=== PATIENT | female | born 1990 | race Caucasian/White ===

== ENCOUNTER 2022-06-13 13:17 | Emergency (ER) | payer OTHER, SELFPAY ==
[2022-06-13 13:32] VITALS: BP 127/92; PULSE 102; RESP 16; TEMP 36.4; O2SAT 97
[2022-06-13 15:22] VITALS: BP 124/75; PULSE 95; RESP 18; TEMP 36.3; O2SAT 97
--- NOTE | 2022-06-13 15:38 | ED.UPPEXIN ---
HPI - Extremity Injury (Upper) General Chief Complaint: Extremity Injury, Upper Stated Complaint: tingling in left hand Time Seen by Provider: 06/13/22 14:47 History of Present Illness HPI narrative: 31-year-old female presents the emergency room for evaluation of numbness and tingling to her third fourth and fifth fingers of her left hand. Patient states symptoms of been present for about a week. Patient states that she is predominantly left-handed. Denies any known injury or trauma. 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 States is unable to fully extend her fifth digit. Related Data Home Medications Medication Instructions Recorded Confirmed albuterol sulfate 90 mcg/actuation inhalation 06/13/22 aerosol inhaler allopurinol 100 mg tablet mg 06/13/22 blood sugar diagnostic (Formerly [facility] 06/13/22 06/13/22 Verio test strips) budesonide-formoterol HFA 80 inhalation 06/13/22 mcg-4.5 mcg/actuation aerosol inhaler (Symbicort) fluticasone propionate 115 inhalation 06/13/22 mcg-salmeterol 21 mcg/actuation HFA inhaler (Advair HFA) ibuprofen 800 mg tablet mg 06/13/22 lancets 33 gauge (Formerly [facility] Delica 06/13/22 06/13/22 Plus Lancet) metformin 750 mg tablet,extended mg PO 06/13/22 release 24 hr pantoprazole 40 mg tablet,delayed mg PO 06/13/22 release pen needle, diabetic 31 gauge x 06/13/22 06/13/22/16 (TRUEplus Pen Needle) Allergies Allergy/AdvReac Type Severity Reaction Status Date / Time latex Allergy Hives Verified 06/13/22 15:27 Review of Systems Review of Systems: CONSTITUTIONAL: Denies fever, chills, or sweats. EYES: Denies visual changes, redness, or discharge. ENT: Denies rhinorrhea, congestion, sore throat, or otalgia. CARDIOVASCULAR: Denies chest pain, palpitations, or edema. RESPIRATORY: Denies cough or dyspnea. GASTROINTESTINAL: Denies abdominal pain, nausea, vomiting, or diarrhea. GENITOURINARY: Denies dysuria or hematuria. SKIN: Denies rash or itching. MUSCULOSKELETAL: Denies back pain, joint pain, or myalgia. NEUROLOGIC: Reports numbness and tingling to left hand PSYCHIATRIC: Denies anxiety or depression. Exam Narrative: GENERAL: Well-appearing, well-nourished, no physical limitations, and in no acute distress. HEAD: Normocephalic, atraumatic. EYES: Conjunctivae normal, PERRLA and EOMI. ENT: External nose normal, Nares clear, no rhinorrhea or epistaxis. Mucous membranes moist. Oropharynx without tonsillar hypertrophy exudate or other lesions. External ears normal, bilateral TMs normal bilaterally NECK: Supple. No meningeal signs. No adenopathy or masses. No carotid bruits or JVD CHEST: Clear to auscultation. No respiratory distress. No wheezes rales or rhonchi. No tenderness. HEART: Regular rate and rhythm. No murmur heard. Normal peripheral pulses. ABDOMEN: Soft, nontender, nondistended, normal active bowel sounds. : Normal external male/female exam. BACK: No CVA tenderness; No cervical/thoracic/lumbar tenderness, step-offs, bony abnormality; FROM EXTREMITIES: Left hand: Medial side of the third digit, fourth digit, and fifth digit. Full range of motion of the third and fourth digit, fifth digit unable to actively completely extend. Neurovascular is intact distally. No obvious signs of injury. SKIN: Warm, dry, no rash. No noted wounds NEURO: No focal deficits. Alert and oriented x3. MAEW. CN's II-XI intact bilaterally, normal gait PSYCH: Cooperative. Normal mood and affect. Course Vital Signs Vital signs: Vital Signs Temperature 36.4 C L 06/13/22 13:32 Pulse Rate 102 H 06/13/22 13:32 Respiratory Rate 16 06/13/22 13:32 Blood Pressure 127/92 H 06/13/22 13:32 Pulse Oximetry 97 06/13/22 13:32 Oxygen Delivery Room Air 06/13/22 13:32 Temperature 36.3 C L 06/13/22 15:22 Pulse Rate 95 06/13/22 15:22 Respiratory Rate 18 06/13/22 15:22 Blood Pressure 124/75 06/13/22 15:22 Pulse Oximetry 97 06/13/22 15:22 Oxygen
[2022-06-13 16:15] VITALS: BP 150/89; PULSE 98; RESP 16; TEMP 36.5; O2SAT 99
== END 2022-06-13 16:15 | disposition home or self-care (01) ==
LOC: ANHED 16:25
PROVIDERS: Emergency Provider Nurse Practitioner Family; PCP Family Medicine
DX: G56.22 Lesion of ulnar nerve, left upper limb (principal); Z79.84 Long term (current) use of oral hypoglycemic drugs
CPT/HCPCS: 96372; 99283; J1100

== ENCOUNTER 2022-07-20 07:47 | Outpatient (CLI) | payer OTHER, SELFPAY ==
[2022-07-20 08:23] LABS: Appearance Urine Slightly Cloudy (Clear); Bilirubin Urine Negative (Negative); Blood Urine Negative (Negative); Color Urine Yellow (Yellow); Glucose Urine UA Negative (Negative); Ketones Urine Negative (Negative); Leukocyte Esterase Ur Negative LEU/UL (NEGATIVE); Nitrate Urine Negative (Negative); Protein Urine 1+ mg/dL (Negative); Specific Grav Ur 1.025 (1.001-1.035); Urobilinogen Urine 0.2 mg/dL (<2.0); pH Urine 5.5 (5.0-9.0)
[2022-07-20 08:31] LABS: Mucus Urine Rare /lpf; Squamous Epithelial Cell Urine Many /hpf (Few); WBC Urine 0-3 /hpf (0-3)
[2022-07-20 08:33] LABS: Add Urine Microscopic? YES
[2022-07-20 08:36] LABS: Alanine Aminotransferase 28 U/L (6-35); Albumin Level 4.1 g/dL (3.5-5.1); Alkaline Phosphatase 99 U/L (38-126); Anion Gap 13 mmol/L (8-16); Aspartate Amino Transferase 48 U/L (14-36); Bilirubin,Total 0.3 mg/dL (0.2-1.3); Blood Urea Nitrogen 11 mg/dL (7-17); Calcium 9.1 mg/dL (8.4-10.2); Carbon Dioxide 22 mmol/L (22-30); Chloride 101 mmol/L (98-107); Cholesterol 169 mg/dL (0-200); Estimated Glomerular Filt Rate > 60; Glucose 177 mg/dL (65-110); HDL Direct 32 mg/dL; Potassium 4.1 mmol/L (3.4-5.0); Sodium 136 mmol/L (137-145); Triglycerides 199 mg/dL (<150)
[2022-07-20 08:45] LABS: Hemoglobin A1C 7.9 % (<5.7)
[2022-07-20 08:47] LABS: LDL Cholesterol Direct 106 mg/dL
[2022-07-20 08:49] LABS: Hematocrit 37.6 % (37.0-47.0); Hemoglobin 11.6 g/dL (12.0-15.0); Mean Corpuscular HGB Conc 30.9 g/dl (32-36); Mean Corpuscular Hemoglobin 25.3 pg (26-34); Mean Corpuscular Volume 81.9 fl (80-100); Mean Platelet Volume 8.4 fl (7.4-10.4); Platelet Count Result 315 k/mm3 (150-375); Red Blood Count 4.59 M/mm3 (4.2-5.4); Red Cell Distribution Width 15.7 % (11.5-14.5); White Blood Count 14.2 K/mm3 (4.5-10.0)
[2022-07-20 20:08] LABS: Creatinine Urine 122.9 mg/dL
[2022-07-20 20:14] LABS: MALB Creatinine Ratio 50.3 mg/g (0-30); Microalbumin Urine Random 61.8 mg/L (0-16.7)
== END 2022-07-20 07:48 | disposition home or self-care (01) ==
LOC: ANHLAB 07:50
PROVIDERS: PCP Family Medicine; Visit Provider Family Medicine
DX: Z00.00 Encounter for general adult medical examination without abnormal findings (principal); E11.9 Type 2 diabetes mellitus without complications; R53.83 Other fatigue; E78.5 Hyperlipidemia, unspecified
CPT/HCPCS: 36415; 80053; 80061; 81001; 82043; 83036; 84443; 85027; 86038

== ENCOUNTER 2022-07-24 08:20 | Outpatient (CLI) | payer OTHER, SELFPAY ==
[2022-07-24 09:27] LABS: Basophils Percent Auto 0.2 % (0.2-1.2); Eosinophils Absolute Auto 0.4 K/mm3 (0-0.3); Eosinophils Percent Auto 2.9 % (0-4.4); Hematocrit 38.3 % (37.0-47.0); Hemoglobin 11.6 g/dL (12.0-15.0); Immature Granulocyte Absolute 0.19 K/mm3 (0.00-0.031); Immature Granulocyte Percent A 1.4 % (0-0.5); Lymphocytes Absolute Auto 2.53 K/mm3 (0.9-3.2); Lymphocytes Percent Auto 19.1 % (18.3-44.2); Mean Corpuscular HGB Conc 30.3 g/dl (32-36); Mean Corpuscular Volume 82.5 fl (80-100); Mean Platelet Volume 8.4 fl (7.4-10.4); Monocytes Absolute Auto 0.6 K/mm3 (0.1-0.6); Monocytes Percent Auto 4.7 % (2.6-8.5); Neutrophils Absolute Auto 9.5 K/mm3 (1.3-6.7); Neutrophils Percent Auto 71.7 % (45.5-73.1); Platelet Count Result 310 k/mm3 (150-375); Red Blood Count 4.64 M/mm3 (4.2-5.4); Red Cell Distribution Width 15.5 % (11.5-14.5); White Blood Count 13.2 K/mm3 (4.5-10.0)
== END 2022-07-24 08:21 | disposition home or self-care (01) ==
LOC: ANHLAB 08:22
PROVIDERS: PCP Family Medicine; Visit Provider Family Medicine
DX: D72.829 Elevated white blood cell count, unspecified (principal)
CPT/HCPCS: 36415; 85025

== ENCOUNTER 2022-07-25 14:04 | Outpatient (CLI) | payer OTHER, SELFPAY ==
--- NOTE | ~2022-07-25 | CT_ITS ---
EXAMINATION: CT abdomen pelvis wo con DATE: 07/25/2022 14:27 INDICATION: Abdominal pain TECHNIQUE: Computed tomography (CT) of the abdomen and pelvis was performed without intravenous contr ast. Automated exposure control and iterative reconstruction technique were employed. The dose-length product was 1643.15 mGy-cm. COMPARISON: None FINDINGS: Lung bases are clear. Heart size normal. No pericardial or pleural effusion. Diffuse hepatic steatosi s with focal sparing along the gallbladder fossa. Gallbladder, spleen, pancreas, bilateral adrenal gl ands and left kidney are normal. Right pelvic kidney with small region of cortical scarring at the in terpolar region. No urolithiasis or hydronephrosis. Normal appendix. Diffuse fatty infiltration of th e colonic wall likely related to body habitus. No bowel obstruction. Bladder, uterus and right adnexa are unremarkable. The left ovary is not identified. No free intraperitoneal gas or fluid. No patholo gically enlarged abdominal or pelvic lymphadenopathy. Mild to moderate lower thoracic and moderate marie mbar spondylosis. Chronic appearing mild anterior wedging at T10-T12. IMPRESSION: 1. No acute intra-abdominal/pelvic process. 2. Diffuse hepatic steatosis. 3. Diffuse fatty infiltration of the colonic wall which may relate to patient body habitus. 4. Cortical scarring at the interpolar region of the right pelvic kidney. Reviewed, dictated and finalized at location A. IMPRESSION: 1. No acute intra-abdominal/pelvic process. 2. Diffuse hepatic steatosis. 3. Diffuse fatty infiltration of the colonic wall which may relate to patient b jasmin habitus. 4. Cortical scarring at the interpolar region of the right pelvic kidney.
== END 2022-07-25 14:05 | disposition home or self-care (01) ==
PROVIDERS: PCP Family Medicine; Visit Provider Family Medicine
DX: R10.9 Unspecified abdominal pain (principal); K76.0 Fatty (change of) liver, not elsewhere classified
CPT/HCPCS: 74176

== ENCOUNTER 2022-07-31 15:39 | Outpatient (CLI) | payer OTHER, SELFPAY ==
[2022-07-31 15:57] LABS: Basophils Percent Auto 0.3 % (0.2-1.2); Eosinophils Absolute Auto 0.6 K/mm3 (0-0.3); Eosinophils Percent Auto 3.9 % (0-4.4); Hematocrit 41.4 % (37.0-47.0); Hemoglobin 12.8 g/dL (12.0-15.0); Immature Granulocyte Absolute 0.15 K/mm3 (0.00-0.031); Immature Platelet Fraction Pct 1.9 % (0.9-11.2); Lymphocytes Absolute Auto 2.51 K/mm3 (0.9-3.2); Lymphocytes Percent Auto 17.3 % (18.3-44.2); Mean Corpuscular HGB Conc 30.9 g/dl (32-36); Mean Corpuscular Hemoglobin 25.1 pg (26-34); Mean Corpuscular Volume 81.3 fl (80-100); Mean Platelet Volume 8.6 fl (7.4-10.4); Monocytes Absolute Auto 0.6 K/mm3 (0.1-0.6); Monocytes Percent Auto 4.1 % (2.6-8.5); Neutrophils Absolute Auto 10.7 K/mm3 (1.3-6.7); Neutrophils Percent Auto 73.4 % (45.5-73.1); Platelet Count Result 422 k/mm3 (150-375); Red Blood Count 5.09 M/mm3 (4.2-5.4); Red Cell Distribution Width 15.2 % (11.5-14.5); White Blood Count 14.5 K/mm3 (4.5-10.0)
[2022-07-31 16:07] LABS: Platelet Estimate Increased (Adequate)
[2022-07-31 16:22] LABS: Amylase 39 U/L (30-110); Lipase 59 U/L (23-300)
[2022-07-31 16:47] LABS: Schistocytes None Seen (NORMAL)
== END 2022-07-31 15:40 | disposition home or self-care (01) ==
LOC: ANHLAB 15:40
PROVIDERS: PCP Family Medicine; Visit Provider Nurse Practitioner Family
DX: R10.10 Upper abdominal pain, unspecified (principal); D72.829 Elevated white blood cell count, unspecified
CPT/HCPCS: 36415; 82150; 83690; 85025; 85055

== ENCOUNTER 2022-08-07 10:31 | Emergency (ER) | payer OTHER, SELFPAY ==
[2022-08-07] VITALS (11 sets, daily range): BP systolic 104–138; BP diastolic 59–87; PULSE 86–101; RESP 16–25; TEMP 36.6; O2SAT 94–98
--- NOTE | ~2022-08-07 | CT_ITS ---
EXAMINATION: CT abdomen pelvis w con DATE: 08/07/2022 12:13 INDICATION: Upper abdominal pain. TECHNIQUE: Computed tomography (CT) of the abdomen and pelvis was performed with 100 mL Omnipaque 350 intravenous contrast. Automated exposure control and iterative reconstruction technique were employe d. The dose-length product was 1611.21 mGy-cm. COMPARISON: CT abdomen and pelvis 07/25/2022 FINDINGS: The visualized portions of the lung bases are clear without pneumonia or pleural effusion. The heart size is normal. No pericardial effusion. There is diffuse hepatic steatosis. The gallbladde r, spleen, pancreas, and adrenal glands are normal. There is a pelvic kidney on the right. Left kidne y is normal. There are no dilated loops of bowel. The appendix is normal. There are no pathologically enlarged lymph nodes. There is no free intraperitoneal fluid. There is a mildly enlarged right exter nal iliac lymph node. There is mild thoracolumbar spondylosis. There is mild chronic anterior wedging of T11 and T12 vertebral bodies. IMPRESSION: 1. Diffuse hepatic steatosis. 2. Mildly enlarged right external iliac lymph node, likely reactive. Reviewed, dictated and finalized at location A.
--- NOTE | ~2022-08-07 | XR_ITS ---
EXAMINATION: XR chest 1V portable DATE: 08/07/2022 11:36 INDICATION: Cough. TECHNIQUE: A single frontal view of the chest was obtained on 2 radiographs. COMPARISON: Chest single view 05/03/22, CT abdomen and pelvis 07/25/2022 FINDINGS: The chest demonstrates clear lungs without pneumonia, pleural effusion, or pneumothorax. Th e heart size is normal. IMPRESSION: 1. No acute cardiopulmonary disease. Reviewed, dictated and finalized at location A.
--- NOTE | 2022-08-07 10:53 | ECG_ITS ---
Measurements Intervals [place] Rate: 95 P: -3 [place]: 155 QRS: 23 QRSD: 85 T: 34 QT: 336 QTc: 424 Interpretive Statements SINUS RHYTHM NO PREVIOUS ECG AVAILABLE FOR COMPARISON Electronically Signed On 08-08-2022 13:05:18 CDT by Maryana Gutierrez M.D.
--- NOTE | 2022-08-07 10:59 | ED.ASTHMA ---
HPI - Asthma General Chief Complaint: Asthma Stated Complaint: ASTHMA EXACERBATION Time Seen by Provider: 08/07/22 10:55 Source: RN notes reviewed History of Present Illness HPI Narrative: Patient presents emergency department from home for shortness of breath. Patient states she has been feeling short of breath for the past month has been progressively worsening. States lower today is associate with chest tightness across the anterior chest goes into the back states she feels like she cannot take a deep breath like something sitting on the chest she denies any fevers or chills she denies any abdominal pain nausea vomiting or any other symptoms patient states she also has been having upper abdominal pain and it feels like there is a pressure like something is keeping her from taking a deep breath she has a history of GERD and is on Protonix she is post to be seen GI this Sunday Related Data Home Medications Medication Instructions Recorded Confirmed blood sugar diagnostic (OneTouch 06/13/22 07/19/22 Verio test strips) lancets 33 gauge (OneTouch Delica 06/13/22 07/19/22 Plus Lancet) pen needle, diabetic 31 gauge x 06/13/22 07/19/22/16 (TRUEplus Pen Needle) Allergies Allergy/AdvReac Type Severity Reaction Status Date / Time latex Allergy Hives Verified 08/07/22 11:23 Review of Systems Review of Systems: Gen.: Denies fevers or chills ENT: Denies congestion Respiratory: Reports shortness of breath CV: See HPI GI: Reports abdominal pain denies nausea, emesis or diarrhea Musculoskeletal: Denies back pain or muscle pain Neuro: Denies numbness, tingling, weakness or focal weakness Skin: Denies rash Except as documented, all other systems reviewed and negative [facility] Past Medical History Medical History Depression Diabetes GERD (gastroesophageal reflux disease) Gout WES (obstructive sleep apnea) Smoking Surgical History Surgical History (Updated 07/20/22 @ 13:34 by Mendoza Barbosa MD) History of oophorectomy partial Family History Family History (Updated 07/20/22 @ 13:34 by Mendoza Barbosa MD) Mother Heart disease Cerebrovascular accident Lupus Social History Social History Smoking packs per day: 0.5 Smoking cigarettes per day: 10.0 Smoking status: Current every day smoker Tobacco type: cigarettes and e-cigarettes/vaping Second hand tobacco smoke exposure: Yes Alcohol intake: never Substance use: never Substance use type: does not use Gender identity (if verbalized by the patient): Female Exam Narrative: APPEARANCE: No acute distress, nontoxic, resting in bed EYES: EOMI HEENT: Normocephalic, atraumatic, OMM RESPIRATORY: No respiratory distress Clear to auscultation bilaterally with no rhonchi wheezing or rales. CARDIOVASCULAR: Regular rate and rhythm without murmurs rubs or gallops. ABDOMINAL: Obese, soft nondistended tender palpation epigastric and right upper quadrant left upper quadrant no tenderness right lower quadrant left lower quadrant no rebound or guarding MUSCULOSKELETAl: Moves all extremities. No clubbing, cyanosis or edema. NEURO: Awake and alert. Following commands, speech normal, no focal deficits SKIN:: Warm, dry. No rashes lesions or abrasions PSYCHIATRIC: Normal affect/mood, Course Course Emergency Course: Discussed with patient results of work-up we discussed need for follow-up with GI we will try [facility]lin Discussed with patient results of workup and diagnosis. Discussed need for follow-up with primary care, proper use of medication, and reasons to return to the emergency department. Patient understands and agrees to current treatment plan Vital Signs Vital signs: Vital Signs Temperature 97.9 F 08/07/22 10:45 Pulse Rate 98 08/07/22 10:45 Respiratory Rate 20 08/07/22 10:45 Blood Pressure 138/87 08/07/22 10:45 Pulse Oximetry 98 08/07/22 10:45 Oxygen Delivery Room
[2022-08-07 11:32] LABS: Basophils Percent Auto 0.2 % (0.2-1.2); Eosinophils Absolute Auto 0.5 K/mm3 (0-0.3); Eosinophils Percent Auto 3.8 % (0-4.4); Hematocrit 37.9 % (37.0-47.0); Hemoglobin 11.8 g/dL (12.0-15.0); Immature Granulocyte Absolute 0.15 K/mm3 (0.00-0.031); Immature Granulocyte Percent A 1.2 % (0-0.5); Lymphocytes Absolute Auto 2.46 K/mm3 (0.9-3.2); Lymphocytes Percent Auto 20.3 % (18.3-44.2); Mean Corpuscular HGB Conc 31.1 g/dl (32-36); Mean Corpuscular Hemoglobin 25.4 pg (26-34); Mean Corpuscular Volume 81.5 fl (80-100); Mean Platelet Volume 8.2 fl (7.4-10.4); Monocytes Absolute Auto 0.4 K/mm3 (0.1-0.6); Monocytes Percent Auto 3.6 % (2.6-8.5); Neutrophils Absolute Auto 8.6 K/mm3 (1.3-6.7); Neutrophils Percent Auto 70.9 % (45.5-73.1); Platelet Count Result 322 k/mm3 (150-375); Red Blood Count 4.65 M/mm3 (4.2-5.4); Red Cell Distribution Width 15.2 % (11.5-14.5); White Blood Count 12.1 K/mm3 (4.5-10.0)
[2022-08-07 11:44] LABS: Alanine Aminotransferase 29 U/L (6-35); Albumin Level 4.3 g/dL (3.5-5.1); Alkaline Phosphatase 102 U/L (38-126); Anion Gap 12 mmol/L (8-16); Aspartate Amino Transferase 54 U/L (14-36); Bilirubin,Total 0.3 mg/dL (0.2-1.3); Blood Urea Nitrogen 9 mg/dL (7-17); Calcium 9.3 mg/dL (8.4-10.2); Carbon Dioxide 25 mmol/L (22-30); Chloride 99 mmol/L (98-107); Estimated CRCL calculation 186 ml/min; Estimated Glomerular Filt Rate > 60; Glucose 150 mg/dL (65-110); Lipase 63 U/L (23-300); Potassium 4.1 mmol/L (3.4-5.0); Prothrombin Time 13.1 Seconds (11.1-14.7); Sodium 136 mmol/L (137-145)
[2022-08-07 11:51] LABS: D Dimer 0.28 ug/mL (<0.48)
[2022-08-07 11:55] LABS: Troponin I < 0.012 ng/mL (0.000-0.034)
[2022-08-07 12:48] LABS: SARS-CoV-2 RNA PCR Negative
[2022-08-07 14:38] LABS: Troponin I < 0.012 ng/mL (0.000-0.034)
[2022-08-07] MEDS: KETOROLAC 30 MG/ML VIAL (*BKC) IV PUSH (15:04)
== END 2022-08-07 16:08 | disposition home or self-care (01) ==
PROVIDERS: Emergency Provider Emergency Medicine; PCP Family Medicine
DX: R06.00 Dyspnea, unspecified (principal); R10.13 Epigastric pain; R07.9 Chest pain, unspecified; Z20.822 Contact with and (suspected) exposure to COVID-19; E11.9 Type 2 diabetes mellitus without complications; K21.9 Gastro-esophageal reflux disease without esophagitis; G47.33 Obstructive sleep apnea (adult) (pediatric); M10.9 Gout, unspecified; F17.210 Nicotine dependence, cigarettes, uncomplicated; F17.290 Nicotine dependence, other tobacco product, uncomplicated; Z79.85 Long-term (current) use of injectable non-insulin antidiabetic drugs; Z79.84 Long term (current) use of oral hypoglycemic drugs
CPT/HCPCS: 36415; 71045; 74177; 80053; 83690; 84484; 85025; 85380; 85610; 85730; 93005; 96374; 99284; A9270; C9803; J1885; Q9967; U0003; U0005

== ENCOUNTER 2022-08-16 14:19 | Outpatient (CLI) | payer OTHER, SELFPAY ==
[2022-08-19 04:14] LABS: LH 7.6 mIU/mL (***)
== END 2022-08-16 14:20 | disposition home or self-care (01) ==
LOC: ANHLAB 14:23
PROVIDERS: PCP Family Medicine; Visit Provider Family Medicine
DX: E28.2 Polycystic ovarian syndrome (principal)
CPT/HCPCS: 36415; 83001; 83002

== ENCOUNTER 2022-08-21 15:08 | Outpatient (CLI) | payer OTHER, SELFPAY ==
[2022-08-21 15:30] LABS: Basophils Percent Auto 0.2 % (0.2-1.2); Eosinophils Absolute Auto 0.4 K/mm3 (0-0.3); Hematocrit 37.1 % (37.0-47.0); Hemoglobin 11.6 g/dL (12.0-15.0); Immature Granulocyte Absolute 0.17 K/mm3 (0.00-0.031); Immature Granulocyte Percent A 1.3 % (0-0.5); Mean Corpuscular HGB Conc 31.3 g/dl (32-36); Mean Corpuscular Hemoglobin 25.3 pg (26-34); Mean Platelet Volume 8.2 fl (7.4-10.4); Monocytes Absolute Auto 0.5 K/mm3 (0.1-0.6); Monocytes Percent Auto 3.5 % (2.6-8.5); Neutrophils Absolute Auto 9.9 K/mm3 (1.3-6.7); Platelet Count Result 308 k/mm3 (150-375); Red Blood Count 4.58 M/mm3 (4.2-5.4); White Blood Count 13.3 K/mm3 (4.5-10.0)
== END 2022-08-21 15:09 | disposition home or self-care (01) ==
LOC: ANHLAB 15:12
PROVIDERS: PCP Family Medicine; Visit Provider Family Medicine
DX: D72.829 Elevated white blood cell count, unspecified (principal)
CPT/HCPCS: 36415; 85025

== ENCOUNTER 2022-09-08 00:22 | Day surgery (SDC) | payer OTHER, SELFPAY ==
[2022-09-01 11:35] VITALS: BMI 52.9
[2022-09-08 12:26] VITALS: BP 139/81; PULSE 95; RESP 22; TEMP 36.4; O2SAT 95
--- NOTE | 2022-09-08 12:39 | WPDANESEPPF ---
Anes - Initial Pre Proc Eval Procedure: Operation Date: 09/08/22 13:30 Proposed Procedures p Colonoscopy - Jeronimo Oliveros MD Date/Time: 09/08/22 12:39 Surgeon: Jeronimo Oliveros MD Pre Op Diagnosis: abnormal CT scan Patient Data Age: 32 Gender: F Height: 1.63 m Weight: 136 kg Last Vital Signs Temp 36.4 C L 09/08/22 12:26 Pulse 95 09/08/22 12:26 Resp 22 H 09/08/22 12:26 BP 139/81 09/08/22 12:26 Pulse Ox 95 09/08/22 12:26 O2 Del Method Room Air 09/08/22 12:26 Allergies Allergy/AdvReac Type Severity Reaction Status Date / Time latex Allergy Hives Verified 09/08/22 12:25 Home Medications Medication Instructions Recorded Confirmed Type blood sugar diagnostic (OneTouch 06/13/22 08/16/22 History Verio test strips) lancets 33 gauge (OneTouch Delica 06/13/22 08/16/22 History Plus Lancet) pen needle, diabetic 31 gauge x 06/13/22 08/16/22 History 03/13 (TRUEplus Pen Needle) albuterol sulfate 90 mcg/actuation 1 inh inhalation Q4H PRN shortness 07/20/22 09/01/22 Rx aerosol inhaler of breath or wheezing #8.5 grams allopurinol 100 mg tablet 100 mg PO BID #60 tabs 07/20/22 09/01/22 Rx fluoxetine 40 mg capsule (Prozac) 40 mg PO DAILY #30 caps 07/20/22 09/01/22 Rx gabapentin 300 mg capsule 300 mg PO BID #60 caps 07/20/22 09/01/22 Rx ibuprofen 800 mg tablet 800 mg PO TID PRN pain #90 tabs 07/20/22 09/01/22 Rx metformin 750 mg tablet,extended 1,500 mg PO DAILY #60 tabs 07/20/22 09/01/22 Rx release 24 hr pantoprazole 40 mg tablet,delayed 40 mg PO DAILY #30 tabs 07/20/22 09/01/22 Rx release semaglutide 0.25 mg or 0.5 mg (2 0.25 mg (0.2 mL) subcut WEEKLY 07/20/22 09/01/22 Rx mg/1.5 mL) subcutaneous pen #1.5 mL injector (Ozempic) ondansetron 4 mg disintegrating 4 mg PO Q6H PRN nausea and 08/10/22 09/01/22 Rx tablet vomiting #30 tabs Patient hx anesthesia problems: none Family hx anesthesia problems: none Results Review: All pre-operative results and documents have been reviewed as part of the pre-operative evaluation. PMFSH Past Medical History Medical History Depression Diabetes GERD (gastroesophageal reflux disease) Gout Nausea WES (obstructive sleep apnea) Smoking Surgical History Surgical History History of oophorectomy partial Family History Family History Mother Heart disease Cerebrovascular accident Lupus Social History Social History Smoking packs per day: 0.5 Smoking cigarettes per day: 10.0 Years smoked: 20 Smoking pack-years: 10.00 Smoking status: Current every day smoker Tobacco type: cigarettes Second hand tobacco smoke exposure: Yes Alcohol intake: never Substance use: never Substance use type: does not use Gender identity (if verbalized by the patient): Female Spiritual care concerns: No Anes - Eval Final PreProcedure Day of Procedure 09/08/22 12:39 Patient weight: morbidly obese Heart: regular rate and rhythm Lungs: clear to auscultation Airway: Mallampati scale class II Last oral intake: >/= 8 hours ASA classification: III Emergent: no Anesthetic plan: proceed Anesthesia type and monitoring: general GIVS and standard monitoring Results Review: All pre-operative results and documents have been reviewed as part of the pre-operative evaluation. Informed Consent: The patient's anesthetic plan and its attendant risks and benefits were discussed with the patient/family/POA. Questions were solicited and answers provided to the satisfaction of the patient/family/POA.
[2022-09-08] MEDS: LACTATED RINGERS 1,000 ML 150 ML IV CONT (12:42)
[2022-09-08 12:47] LABS: Glucose Point of Care 127 mg/dl (65-105)
--- NOTE | 2022-09-08 12:48 | WPDHPUPDATE1 ---
History and Physical Update Update Date/Time: 09/08/22 12:48 History and Physical has been reviewed, including an updated exam of the patient. There are NO changes in the patient's condition. Risks, benefits, and alternatives have been discussed and questions answered. Patient agrees to proceed with procedure.
[2022-09-08 13:06] VITALS: BP 115/76; PULSE 88; RESP 20; O2SAT 99
[2022-09-08 13:16] VITALS: BP 126/89; PULSE 86; RESP 20; O2SAT 100
[2022-09-08 13:26] VITALS: BP 132/87; PULSE 86; RESP 16; O2SAT 100
== END 2022-09-08 13:53 | disposition home or self-care (01) ==
PROVIDERS: PCP Family Medicine; Visit Provider Internal Medicine Gastroenterology
PROC: 0DJD8ZZ Inspection of Lower Intestinal Tract, Via Natural or Artificial Opening Endoscopic (ICD-10-PCS; CPT 45378; principal; 2022-09-08 13:30)
DX: R10.9 Unspecified abdominal pain (principal); G89.29 Other chronic pain; K76.0 Fatty (change of) liver, not elsewhere classified; E11.9 Type 2 diabetes mellitus without complications; G47.33 Obstructive sleep apnea (adult) (pediatric); K21.9 Gastro-esophageal reflux disease without esophagitis; M10.9 Gout, unspecified; F32.A Depression, unspecified; F17.210 Nicotine dependence, cigarettes, uncomplicated; F17.290 Nicotine dependence, other tobacco product, uncomplicated; E66.01 Morbid (severe) obesity due to excess calories; Z68.43 Body mass index [BMI] 50.0-59.9, adult; Z79.51 Long term (current) use of inhaled steroids; Z79.84 Long term (current) use of oral hypoglycemic drugs; Z79.899 Other long term (current) drug therapy
CPT/HCPCS: 45378; 82948; J2704; J7120

== ENCOUNTER 2022-09-18 16:58 | Outpatient (CLI) | payer OTHER, SELFPAY ==
[2022-09-18 18:14] LABS: Basophils Percent Auto 0.2 % (0.2-1.2); Eosinophils Absolute Auto 0.2 K/mm3 (0-0.3); Eosinophils Percent Auto 1.9 % (0-4.4); Hematocrit 36.9 % (37.0-47.0); Hemoglobin 11.7 g/dL (12.0-15.0); Immature Granulocyte Absolute 0.14 K/mm3 (0.00-0.031); Immature Granulocyte Percent A 1.1 % (0-0.5); Lymphocytes Absolute Auto 2.21 K/mm3 (0.9-3.2); Lymphocytes Percent Auto 17.9 % (18.3-44.2); Mean Corpuscular HGB Conc 31.7 g/dl (32-36); Mean Corpuscular Hemoglobin 24.9 pg (26-34); Mean Corpuscular Volume 78.5 fl (80-100); Mean Platelet Volume 8.4 fl (7.4-10.4); Monocytes Absolute Auto 0.5 K/mm3 (0.1-0.6); Monocytes Percent Auto 3.8 % (2.6-8.5); Neutrophils Absolute Auto 9.3 K/mm3 (1.3-6.7); Neutrophils Percent Auto 75.1 % (45.5-73.1); Platelet Count Result 340 k/mm3 (150-375); Red Cell Distribution Width 14.7 % (11.5-14.5); White Blood Count 12.4 K/mm3 (4.5-10.0)
== END 2022-09-18 16:59 | disposition home or self-care (01) ==
LOC: ANHLAB 16:59
PROVIDERS: PCP Family Medicine; Visit Provider Family Medicine
DX: D72.829 Elevated white blood cell count, unspecified (principal)
CPT/HCPCS: 36415; 85025

== ENCOUNTER 2022-09-29 15:56 | Outpatient (CLI) | payer OTHER, SELFPAY ==
[2022-09-29 16:15] LABS: Basophils Percent Auto 0.3 % (0.2-1.2); Eosinophils Absolute Auto 0.3 K/mm3 (0-0.3); Eosinophils Percent Auto 2.3 % (0-4.4); Hematocrit 36.4 % (37.0-47.0); Hemoglobin 11.2 g/dL (12.0-15.0); Immature Granulocyte Absolute 0.15 K/mm3 (0.00-0.031); Immature Granulocyte Percent A 1.2 % (0-0.5); Lymphocytes Absolute Auto 2.18 K/mm3 (0.9-3.2); Mean Corpuscular HGB Conc 30.8 g/dl (32-36); Mean Corpuscular Hemoglobin 24.5 pg (26-34); Mean Corpuscular Volume 79.6 fl (80-100); Monocytes Absolute Auto 0.5 K/mm3 (0.1-0.6); Monocytes Percent Auto 4.1 % (2.6-8.5); Neutrophils Percent Auto 74.1 % (45.5-73.1); Platelet Count Result 317 k/mm3 (150-375); Red Blood Count 4.57 M/mm3 (4.2-5.4); Red Cell Distribution Width 15.1 % (11.5-14.5); White Blood Count 12.1 K/mm3 (4.5-10.0)
== END 2022-09-29 15:57 | disposition home or self-care (01) ==
LOC: ANHLAB 15:58
PROVIDERS: PCP Family Medicine; Visit Provider Nurse Practitioner Family
DX: D72.829 Elevated white blood cell count, unspecified (principal)
CPT/HCPCS: 36415; 85025

== ENCOUNTER 2022-11-14 08:02 | Outpatient (CLI) | payer MEDICAID, SELFPAY ==
[2022-11-14 16:46] LABS: Alanine Aminotransferase 32 U/L (6-35); Albumin Level 4.2 g/dL (3.5-5.1); Alkaline Phosphatase 151 U/L (38-126); Anion Gap 8 mmol/L (8-16); Aspartate Amino Transferase 110 U/L (14-36); Bilirubin,Total 0.3 mg/dL (0.2-1.3); Blood Urea Nitrogen 12 mg/dL (7-17); Carbon Dioxide 31 mmol/L (22-30); Chloride 98 mmol/L (98-107); Cholesterol 157 mg/dL (0-200); Estimated Glomerular Filt Rate > 60; Glucose 177 mg/dL (65-110); HDL Direct 33 mg/dL; Potassium 4.2 mmol/L (3.4-5.0); Sodium 137 mmol/L (137-145); Triglycerides 196 mg/dL (<150)
[2022-11-14 17:17] LABS: LDL Cholesterol Direct 80 mg/dL
[2022-11-14 17:20] LABS: Free T4 Free Thyroxine 1.53 ng/mL (0.78-2.19)
[2022-11-14 17:26] LABS: Creatinine Urine 91.8 mg/dL
[2022-11-14 17:30] LABS: MALB Creatinine Ratio 49.3 mg/g (0-30); Microalbumin Urine Random 45.3 mg/L (0-16.7)
[2022-11-14 18:10] LABS: Vitamin D 25 Hydroxy < 12.8 ng/mL
== END 2022-11-14 08:03 | disposition home or self-care (01) ==
PROVIDERS: PCP Family Medicine; Visit Provider Nurse Practitioner Family
DX: G62.9 Polyneuropathy, unspecified (principal); E11.29 Type 2 diabetes mellitus with other diabetic kidney complication; K76.0 Fatty (change of) liver, not elsewhere classified; R80.9 Proteinuria, unspecified
CPT/HCPCS: 36415; 80053; 80061; 82043; 82306; 82607; 84439; 84443

== ENCOUNTER 2022-11-29 10:09 | Emergency (ER) | payer OTHER, SELFPAY ==
[2022-11-29] VITALS (20 sets, daily range): BP systolic 102–143; BP diastolic 42–103; PULSE 85–105; RESP 12–20; TEMP 37; O2SAT 90–99
--- NOTE | ~2022-11-29 | CT_ITS ---
EXAMINATION: CTA chest PE protocol DATE: 11/29/2022 13:32 INDICATION: Chest pain and shortness of breath. TECHNIQUE: Computed tomography angiography (CTA) of the chest was performed with 100 mL Omnipaque-350 intravenous contrast timed to evaluate the pulmonary arteries. Coronal maximum intensity projection 3D-reconstructions were created by the technologist. Automated exposure control and iterative reconst ruction technique were employed. The dose-length product was 895.90 mGy-cm. COMPARISON: CT abdomen and pelvis 08/07/2022 FINDINGS: The lungs demonstrate mild atelectasis. No pleural effusion. The heart size is normal. No p ericardial effusion. There is no pulmonary embolus. There is diffuse hepatic steatosis. There is mild mediastinal lymphadenopathy, likely reactive. There is mild thoracic spondylosis. There is mild marketing finance specialist vee anterior wedging of T11 and T12 vertebral bodies. IMPRESSION: 1. No pulmonary embolus. Sensitivity is mildly decreased by motion artifact. Reviewed, dictated and finalized at location A. 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
--- NOTE | ~2022-11-29 | XR_ITS ---
EXAMINATION: XR chest 1V portable DATE: 11/29/2022 12:33 INDICATION: Cough and shortness of breath TECHNIQUE: frontal view of the chest was obtained. COMPARISON: Chest radiograph dated 08/07/2022 FINDINGS: The lungs remain clear with no focal airspace opacities, pulmonary edema, pleural effusion or pneumot horax. The cardiomediastinal silhouette is normal. IMPRESSION: 1. No acute cardiopulmonary disease. Reviewed, dictated and finalized at location A. 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
--- NOTE | 2022-11-29 10:46 | ECG_ITS ---
Measurements Intervals [place] Rate: 100 P: -2 [place]: 162 QRS: 19 QRSD: 90 T: 29 QT: 340 QTc: 440 Interpretive Statements SINUS TACHYCARDIA ABNORMAL RHYTHM ECG COMPARED TO ECG 08/07/2022 10:54:01 SINUS TACHYCARDIA NOW PRESENT Electronically Signed On 11-29-2022 14:59:19 TRANSFER CAR OPERATOR by Janine Garcia M.D.
--- NOTE | 2022-11-29 10:53 | ED.SOB ---
HPI - SOB/Dyspnea General Chief Complaint: Shortness of Breath/Dyspnea Stated Complaint: my lungs hurt Time Seen by Provider: 11/29/22 10:42 Source: patient Mode of arrival: ambulatory Limitations: no limitations History of Present Illness HPI Narrative: This is a 32 year old female that presents to the ER for shortness of breath ongoing since last night. Associated with chest tightness, cough, congestion, and rhinorrhea. She was seen by her primary provider and started on azithromycin. Reports her O2 saturation was reading low on a home pulse oximeter last night which prompted her to be seen. She has history of asthma and is a current smoker. Denies fevers. Related Data Home Medications Medication Instructions Recorded Confirmed blood sugar diagnostic (OneTouch 06/13/22 11/27/22 Verio test strips) lancets 33 gauge (OneTouch Delica 06/13/22 11/27/22 Plus Lancet) ibuprofen 800 mg tablet 800 mg PO Q6H PRN 11/27/22 11/27/22 Allergies Allergy/AdvReac Type Severity Reaction Status Date / Time latex Allergy Hives Verified 11/29/22 11:45 Review of Systems Review of Systems: CONSTITUTIONAL: Denies fever ENT: Reports rhinorrhea, congestion, sore throat CARDIOVASCULAR: Reports chest pain. Denies edema. RESPIRATORY: Reports cough and dyspnea. All systems reviewed & are unremarkable except as noted in HPI and below PMFSH Past Medical History Medical History Depression Diabetes REID (generalized anxiety disorder) GERD (gastroesophageal reflux disease) Gout Nausea WES (obstructive sleep apnea) Smoking Surgical History Surgical History History of oophorectomy partial Family History Family History Mother Heart disease Cerebrovascular accident Lupus Social History Social History (Updated 11/22/22 @ 15:33 by Ava Harris [facility]) Smoking packs per day: 0.5 Smoking cigarettes per day: 10.0 Years smoked: 20 Smoking pack-years: 10.00 Smoking status: Current every day smoker Tobacco type: cigarettes and e-cigarettes/vaping Second hand tobacco smoke exposure: Yes Additional smoking assessment comments: has vaped for 2 years also. Alcohol intake: never Substance use: never Substance use type: does not use Lack of Transportation: No Lack of Food: Never True Current Housing: I Have Housing Concerned About Future Housing: No Difficulty Paying Gas/Electric Bills: No Difficulty Paying for Meds: No Currently Unemployed: No Education: Trade/Vocational Certificate Living arrangements: with family Occupation/Education: occupation Gender identity (if verbalized by the patient): Female Spiritual care concerns: No Exam Narrative: GENERAL: Well-appearing, well-nourished, and in no acute distress. HEAD: Normocephalic, atraumatic. EYES: EOMI. ENT: Nares clear, no rhinorrhea or epistaxis. Mucous membranes moist. Oropharynx without tonsillar hypertrophy exudate or other lesions. Bilateral TMs pearly lechuga non-bulging NECK: Supple. No adenopathy or masses. CHEST: Clear to auscultation. No respiratory distress. No wheezes rales or rhonchi HEART: Regular rate and rhythm. No murmur heard. Normal peripheral pulses. EXTREMITIES: Normal range of motion. No edema. SKIN: Warm, dry, no rash. NEURO: No focal deficits. Alert and oriented x3. PSYCH: Normal mood and affect Course Course Emergency Course: Patient updated on work-up and agrees with plan of care Vital Signs Vital signs: Vital Signs Temperature 98.6 F 11/29/22 10:30 Pulse Rate 103 H 11/29/22 10:30 Respiratory Rate 16 11/29/22 10:30 Blood Pressure 143/103 H 11/29/22 10:30 Pulse Oximetry 95 11/29/22 10:30 Oxygen Delivery Room Air 11/29/22 10:30 Temperature 98.6 F 11/29/22 10:30 Pulse Rate 90 11/29/22 13:17 Respiratory Rate 16 11/29/22 13:17 Blood Pressure 140/5
[2022-11-29 10:57] LABS: Basophils Percent Auto 0.4 % (0.2-1.2); Eosinophils Absolute Auto 0.4 K/mm3 (0-0.3); Eosinophils Percent Auto 3.5 % (0-4.4); Hematocrit 37.3 % (37.0-47.0); Hemoglobin 11.3 g/dL (12.0-15.0); Immature Granulocyte Percent A 0.9 % (0-0.5); Lymphocytes Absolute Auto 1.46 K/mm3 (0.9-3.2); Lymphocytes Percent Auto 13.6 % (18.3-44.2); Mean Corpuscular HGB Conc 30.3 g/dl (32-36); Mean Corpuscular Hemoglobin 24.7 pg (26-34); Mean Corpuscular Volume 81.4 fl (80-100); Mean Platelet Volume 8.6 fl (7.4-10.4); Monocytes Absolute Auto 0.4 K/mm3 (0.1-0.6); Monocytes Percent Auto 3.6 % (2.6-8.5); Neutrophils Absolute Auto 8.4 K/mm3 (1.3-6.7); Platelet Count Result 291 k/mm3 (150-375); Red Blood Count 4.58 M/mm3 (4.2-5.4); Red Cell Distribution Width 15.7 % (11.5-14.5); White Blood Count 10.7 K/mm3 (4.5-10.0)
[2022-11-29 11:12] LABS: Alanine Aminotransferase 33 U/L (6-35); Alkaline Phosphatase 109 U/L (38-126); Anion Gap 7 mmol/L (8-16); Aspartate Amino Transferase 71 U/L (14-36); Bilirubin,Total 0.4 mg/dL (0.2-1.3); Blood Urea Nitrogen 9 mg/dL (7-17); Calcium 8.6 mg/dL (8.4-10.2); Carbon Dioxide 28 mmol/L (22-30); Chloride 97 mmol/L (98-107); Estimated Glomerular Filt Rate > 60; Glucose 268 mg/dL (65-110); Lipase 52 U/L (23-300); Sodium 132 mmol/L (137-145)
[2022-11-29 11:18] LABS: INR 1.1; Prothrombin Time 13.7 Seconds (11.1-14.7)
[2022-11-29 11:19] LABS: Partial Thromboplastin Time 31.7 SECONDS (22.3-36.8)
[2022-11-29 11:23] LABS: Troponin I < 0.012 ng/mL (0.000-0.034)
[2022-11-29] MEDS: ASPIRIN 81 MG CHEWABLE TABLET 324 MG PO (11:41)
[2022-11-29 12:13] LABS: Influenza A QL RT-PCR Negative (Negative); Influenza B QL RT-PCR Negative (Negative); SARS-CoV-2 RNA PCR Negative
[2022-11-29 12:15] LABS: D Dimer 0.73 ug/mL (<0.48)
[2022-11-29] MEDS: IPRATROPIUM BR 0.02% INH SOLN 0.5 MG/2.5 ML VIAL INHALATION (12:29)
[2022-11-29] MEDS: ALBUTEROL SULFATE NEB 2.5 MG/3 ML INH 5 MG INHALATION (12:29)
[2022-11-29 14:21] LABS: Troponin I < 0.012 ng/mL (0.000-0.034)
== END 2022-11-29 16:07 | disposition home or self-care (01) ==
PROVIDERS: Emergency Provider Physician Assistant; PCP Family Medicine
DX: J40 Bronchitis, not specified as acute or chronic (principal); Z20.822 Contact with and (suspected) exposure to COVID-19; F17.210 Nicotine dependence, cigarettes, uncomplicated; F32.9 Major depressive disorder, single episode, unspecified; E11.9 Type 2 diabetes mellitus without complications; K21.9 Gastro-esophageal reflux disease without esophagitis; G47.30 Sleep apnea, unspecified
CPT/HCPCS: 36415; 71045; 71275; 80053; 83690; 84484; 85025; 85380; 85610; 85730; 87636; 93005; 94640; 99284; A9270; Q9967

== ENCOUNTER 2022-12-14 15:47 | Outpatient (CLI) | payer OTHER, SELFPAY ==
[2022-12-14 16:03] LABS: Basophils Percent Auto 0.2 % (0.2-1.2); Eosinophils Absolute Auto 0.4 K/mm3 (0-0.3); Eosinophils Percent Auto 2.8 % (0-4.4); Hematocrit 38.3 % (37.0-47.0); Hemoglobin 11.8 g/dL (12.0-15.0); Immature Granulocyte Absolute 0.12 K/mm3 (0.00-0.031); Immature Granulocyte Percent A 0.8 % (0-0.5); Lymphocytes Absolute Auto 2.62 K/mm3 (0.9-3.2); Lymphocytes Percent Auto 16.6 % (18.3-44.2); Mean Corpuscular HGB Conc 30.8 g/dl (32-36); Mean Corpuscular Hemoglobin 24.7 pg (26-34); Mean Corpuscular Volume 80.3 fl (80-100); Mean Platelet Volume 8.2 fl (7.4-10.4); Monocytes Absolute Auto 0.6 K/mm3 (0.1-0.6); Monocytes Percent Auto 3.9 % (2.6-8.5); Neutrophils Percent Auto 75.7 % (45.5-73.1); Platelet Count Result 355 k/mm3 (150-375); Red Blood Count 4.77 M/mm3 (4.2-5.4); Red Cell Distribution Width 15.7 % (11.5-14.5); White Blood Count 15.8 K/mm3 (4.5-10.0)
[2022-12-14 16:08] LABS: Atypical Lymphocytes Present; Hypochromasia 1+ (NORMAL); Platelet Estimate Adequate (Adequate); Schistocytes None Seen (NORMAL)
[2022-12-14 16:42] LABS: Alanine Aminotransferase 31 U/L (6-35); Albumin Level 4.3 g/dL (3.5-5.1); Alkaline Phosphatase 100 U/L (38-126); Anion Gap 8 mmol/L (8-16); Aspartate Amino Transferase 64 U/L (14-36); Bilirubin,Total 0.3 mg/dL (0.2-1.3); Blood Urea Nitrogen 15 mg/dL (7-17); CRP 4.5 mg/dL (<1.0); Calcium 9.4 mg/dL (8.4-10.2); Carbon Dioxide 29 mmol/L (22-30); Chloride 99 mmol/L (98-107); Estimated Glomerular Filt Rate > 60; Glucose 220 mg/dL (65-110); Potassium 4.4 mmol/L (3.4-5.0); Sodium 136 mmol/L (137-145)
[2022-12-14 17:07] LABS: Erythrocyte Sedimentation Rate 24 mm/hr (0-20)
[2022-12-18 14:41] LABS: BCR/abl Prior Result Not Given
[2022-12-18 15:27] LABS: BCR/abl P190 Not Detected; BCR/abl P210 Not Detected
[2022-12-18 15:28] LABS: BCR/abl P190 Chg YES; BCR/abl P210 Chg YES
== END 2022-12-14 15:48 | disposition home or self-care (01) ==
LOC: ANHLAB 15:48
PROVIDERS: PCP Family Medicine; Visit Provider Internal Medicine Hematology & Oncology
DX: D72.829 Elevated white blood cell count, unspecified (principal)
CPT/HCPCS: 36415; 80053; 81206; 81207; 85025; 85652; 86140; 88184